=== PATIENT | male | born 1985 | race Hispanic/Latino ===

== ENCOUNTER 2018-12-24 15:31 | Outpatient (CLI) | payer OTHER ==
--- NOTE | 2018-12-24 15:51 | RAD ---
4 views of the right wrist 12/24/2018 COMPARISON: None HISTORY: Fall, trauma, pain FINDINGS: No displaced fracture or evidence of dislocation. No radiopaque foreign body or subcutaneou s gas. If symptoms persist, follow-up in 7-10 days with dedicated scaphoid views advised. IMPRESSION: No acute findings.
== END 2018-12-24 15:32 | disposition home or self-care (01) ==
LOC: SCSRAD 15:31
PROVIDERS: ATTEND Nurse Practitioner Family
DX: M25.531 Pain in right wrist (principal)

== ENCOUNTER 2019-02-21 16:52 | Outpatient (CLI) | payer BC ==
--- NOTE | 2019-02-21 17:12 | RAD ---
EXAM: Chest PA and lateral: HISTORY: Cough COMPARISON: none FINDINGS: Lung recio are clear. Vascular markings are normal. Heart and mediastinum appear unremarkable. Osseous structures are unremarkable. IMPRESSION: Unremarkable chest
== END 2019-02-21 16:53 | disposition home or self-care (01) ==
LOC: SCSRAD 16:52
PROVIDERS: ATTEND Nurse Practitioner Family
DX: R05 Cough (principal)
CPT/HCPCS: 71046